=== PATIENT | female | born 1995 | race Caucasian/White ===

== ENCOUNTER → 2024-09-17 13:55 | Outpatient (CLI) | payer OTHER, SELFPAY ==
[2024-09-17 16:54] LABS: Urine N gonorrhoeae NOT DETECTED
[2024-09-17 17:01] LABS: Urine Chlamydia NOT DETECTED
== END ==
PROVIDERS: Visit Provider Student in an Organized Health Care Education/Training Program
DX: Z34.80 Encounter for supervision of other normal pregnancy, unspecified trimester (principal)
CPT/HCPCS: 87491; 87591

== ENCOUNTER 2024-09-25 07:39 | Emergency (ER) | payer OTHER, SELFPAY ==
[2024-09-25 07:57] VITALS: BP 129/76; PULSE 87; RESP 19; TEMP 36.3; O2SAT 98; BMI 29.2
--- NOTE | 2024-09-25 08:47 | ED_ITS ---
HPI - General Adult General Chief complaint: OB/Uterine Contractions Stated complaint: 7 weeks lot of bleeding Time Seen by Provider: 09/25/24 08:47 Source: patient Mode of arrival: Family Vehicle History of Present Illness HPI narrative: 28-year-old 7 weeks by dates with prior ultrasound approximately 2 weeks ago showing her 5 weeks and 5 days. She has been having increasing cramping over the last 24 hours increasing spotting and this morning passed a fairly large clot. She has not feeling dizzy, no palpitations no chest pain. She recognizes that possibility of a miscarriage this point is high. She did not require RhoGAM with her 1st Related Data Home Medications Medication Instructions Recorded Confirmed vitamin-ferrous sulfate tab PO 09/11/24 09/17/24 27 mg iron-folic acid 0.8 mg tablet Allergies Allergy/AdvReac Type Severity Reaction Status Date / Time No Known Drug Allergies Allergy Verified 09/25/24 08:01 Review of Systems Review of Systems Narrative: Pertinent positive and negative findings as per HPI Patient History Medical History Wrist fracture Surgical History History of tooth extraction [place] teeth extracted Family History Father Esophageal cancer GERD (gastroesophageal reflux disease) Obesity Mother Cholecystitis Social History marital status: number of children: 1 household members: spouse and children lives independently: Yes caregiver/support person: Yes housing: house pets and animals: Yes (dogs) education level: college (bachelor's degree) occupational status: employed (works from home) current occupational exposures/hazards: No special maddi needs: No travel history: recent (domestic only) seatbelt use: always helmet use: Yes water heater temp set < 120 deg: Yes working smoke detector in home: Yes fire extinguisher in home: Yes carbon monox detector in home: Yes firearms in home: No do you feel safe at home: Yes Smoking Status: Never smoker second hand exposure: No alcohol intake: former (very occasionally when not ) substance use type: marijuana (not while /) during the past year weight has: other (back to pre- weight) well-balanced diet: about half the time daily servings fruits/ve or more times/day caffeine: Yes (single 12 oz cup coffee in AM) Type(s) of exercise: walking (1.5-2 miles/day) and yoga Smoking Status: Never smoker alcohol intake frequency: 0-2 drinks per day Substance Use Type: does not use Exam Initial Vital Signs Initial Vital Signs: Vital Signs Temperature 97.4 F L 09/25/24 07:57 Pulse Rate 87 09/25/24 07:57 Respiratory Rate 19 09/25/24 07:57 Blood Pressure 129/76 09/25/24 07:57 Pulse Oximetry 98 09/25/24 07:57 Oxygen Delivery Method Room Air 09/25/24 07:57 General: Alert appropriate in no acute distress Respiratory: Able to speak in full sentences, no obvious respiratory distress Abdomen: Minor suprapubic tenderness no flank pain Skin: No obvious rashes, warm and dry Neurologic: Grossly intact no obvious asymmetries or abnormalities Psych: appropriate insight and affect, cooperative Bedside ultrasound is done. She has a full bladder and visualization of the uterus is excellent There is yolk sac with pole. There is some minor cardiac activity somewhere in the 60-80 beat range. There is subchorionic clot appreciated there was also clot appreciated in the lower uterine segment Course Orders Ordered: ED Orders 09/25/24 08:25 Complete Blood Count AUTO DIFF Stat Comprehensive Metabolic Panel Stat HCG Quantitative /Beta subunit Stat Type and Screen Stat Vital Signs Vital signs: Vital Signs - 8 hr 09/25/24 07:57 Temperature 97.4 F L Pulse Rate 87 Respiratory Rate 19 Blood Pressure 129/76 Pulse Oximetry 98 Oxygen Delivery Method Room Air Medical Decision Making [facility] Narrative Medical decision making narrative: 28-year-old woman approximately 7 weeks in the process of miscarrying. With the clots, cramping, clots appreciated inside the uterus and heart rate in the 60-80 range impending spontaneous miscarriage is most likely diagnosis. There does not appear to be any difficulties with ectopic . At this point pain is controlled. Offered Toradol as well as oral narcotics but patient declined. She was prepared to hear this news. We talked about discharge home, at 7 weeks, the chances for successfully passing this at home without any medical or surgical intervention is quite high. Reviewed with her reasons to return to the emergency department. Talked about ibuprofen and Tylenol for pain control. She declined any narcotics to use at home. We will ask her to follow up with her OBGYN in the near future. Discharge Plan Departure Patient Disposition: Home Clinical Impression: Incomplete miscarriage Instructions: DI for Miscarriage Activity Restrictions/Additional Instructions: I am sorry that you are having to experience this Based on the ultrasound with multiple blood clots in your uterus and the heart rate dropping so low, you are in the process of miscarriage. The chances her cholesterol 100% that this will continue. At 7 weeks, you are likely going to be able to pass the clots as well as the products of conception without any additional medical intervention. Using 400 mg of ibuprofen (2 [id number]-hkiljej pills) and 1 Tylenol every 6 hours can be very helpful in controlling pain. Reasons to return to the emergency department include increasing pain, heavy bleeding such that your feeling more than a pad an hour, chest pain shortness for breath. I would recommend that you follow up with your OBGYN, please give them a call this week to see how soon they would like to see you. Prescriptions: No Action vit-ferrous sulfat-FA 27 mg iron- 0.8 mg tablet PO Referrals: Miscellaneous,Doctor, MD [Primary Care Provider] - Stand Alone Forms: Patient Portal/API/Survey, Work Release Note
[2024-09-25 08:55] LABS: Add Manual Diff / Slide Review NO; Basophils Absolute Auto 0 /uL (0-100); Basophils Percent Auto 0.6 % (0-2); Eosinophils Absolute Auto 100 /uL (0-450); Hematocrit 41.2 % (36-46); Lymphocytes Absolute Auto 2000 /uL (1100-4500); Lymphocytes Percent Auto 33.6 % (25-40); Mean Corpuscular HGB Conc 33.9 % (30-36); Mean Corpuscular Hemoglobin 29.1 PG (26-34); Mean Corpuscular Volume 85.6 fL (80-100); Monocytes Absolute Auto 300 /uL (0-900); Monocytes Percent Auto 5.5 % (3-14); Neutrophils Absolute Auto 3600 /uL (1500-7000); Neutrophils Percent Auto 59.3 % (50-75); Platelet Count 185 X10^3/uL (150-400); Red Blood Cell Count 4.82 X10^6/uL (4.0-5.2); Red Cell Distribution Width 13.2 % (11.6-14.8)
[2024-09-25 09:07] LABS: Alanine Aminotransferase 20 IU/L (<35); Albumin 4.7 g/dL (3.5-5.0); Albumin Globulin Ratio 1.5 (1.0-2.8); Alkaline Phosphatase 66 U/L (38-126); Aspartate Aminotransferase 25 IU/L (14-36); BUN Creatinine Ratio 12.3 (6-22); Bilirubin Total 0.9 mg/dL (0.2-1.3); Blood Urea Nitrogen 9 mg/dL (7-17); Calcium 9.4 mg/dL (8.4-10.2); Carbon Dioxide 26 mmol/L (22-32); Chloride 103 mmol/L (98-107); Estimated Glomerular Filt Rate > 60 mL/min (>60); Globulin 3.1 g/dL (1.7-4.1); Glucose 92 mg/dL (70-100); HEMOLYSIS < 15 (0-50); Potassium 4.3 mmol/L (3.4-5.1); Sodium 138 mmol/L (137-145); Total Protein 7.8 g/dL (6.3-8.2)
[2024-09-25 09:21] LABS: Urine Volume 10mL (spun)
[2024-09-25 09:24] LABS: HCG Quantitative /Beta subunit 7758.1 mIU/mL
[2024-09-25 09:25] VITALS: BP 124/72; PULSE 80; RESP 20; TEMP 36.4; O2SAT 100
[2024-09-25 09:26] LABS: Bacteria Urine None Seen; Culture Indicated Urine Specimen Cultured; RBC Urine 1-5/HPF (0-5/HPF); Squamous Epithelial Cell Urine 1-5 /HPF (0-5/HPF); WBC Urine 5-10/HPF (0-5/HPF)
== END 2024-09-25 09:28 | disposition home or self-care (01) ==
PROVIDERS: Emergency Provider Emergency Medicine
DX: O03.4 Incomplete spontaneous abortion without complication (principal)
CPT/HCPCS: 36415; 80053; 81003; 81015; 84702; 85025; 86850; 86900; 86901; 87086; 99283

== ENCOUNTER → 2024-10-29 09:48 | Outpatient (CLI) | payer OTHER, SELFPAY | PROVIDERS: Referring Provider Physician Assistant; Visit Provider Physician Assistant | DX: J02.9 Acute pharyngitis, unspecified (principal) | CPT/HCPCS: 87070; 87077; 87147; 87185 ==

== ENCOUNTER → 2025-08-20 12:49 | Outpatient (CLI) | payer OTHER, SELFPAY ==
[2025-08-20 16:16] LABS: Progesterone, Total 1.02 ng/mL
== END ==
PROVIDERS: Referring Provider Obstetrics & Gynecology; Visit Provider Obstetrics & Gynecology
DX: N92.6 Irregular menstruation, unspecified (principal)
CPT/HCPCS: 36415; 84144

== ENCOUNTER → 2025-09-22 12:23 | Outpatient (CLI) | payer OTHER, SELFPAY ==
[2025-09-22 13:10] LABS: Alanine Aminotransferase 16 IU/L (<35); Albumin 4.8 g/dL (3.5-5.0); Albumin Globulin Ratio 1.7 (1.0-2.8); Alkaline Phosphatase 60 U/L (38-126); Blood Urea Nitrogen 12 mg/dL (7-17); Calcium 9.5 mg/dL (8.4-10.2); Carbon Dioxide 23 mmol/L (22-32); Chloride 103 mmol/L (98-107); Estimated Glomerular Filt Rate > 60 mL/min (>60); Globulin 2.9 g/dL (1.7-4.1); Glucose 80 mg/dL (70-99); HEMOLYSIS < 15 (0-50); Potassium 4.3 mmol/L (3.4-5.1); Sodium 138 mmol/L (137-145); Total Protein 7.7 g/dL (6.3-8.2)
[2025-09-22 13:24] LABS: HCG Quantitative /Beta subunit < 2.39 mIU/mL
[2025-09-22 13:38] LABS: TSH w/ Reflex to FT4 2.57 uIU/mL (0.47-4.68)
[2025-09-22 14:11] LABS: Follicle Stimulating Hormone 5.26 mIU/mL
[2025-09-22 14:27] LABS: Estradiol, Total 33.5 pg/mL
== END ==
PROVIDERS: Referring Provider Obstetrics & Gynecology; Visit Provider Obstetrics & Gynecology
DX: N92.6 Irregular menstruation, unspecified (principal)
CPT/HCPCS: 36415; 80053; 82397; 82670; 83001; 84146; 84443; 84702

== ENCOUNTER → 2025-10-09 09:18 | Outpatient (CLI) | payer OTHER, SELFPAY ==
--- NOTE | 2025-10-09 09:20 | DI.US.S_ITS ---
PROCEDURE: US PELVIC COMPLETE INDICATIONS: EVALUATE ENDOMETRIAL LINING AFTER MENSES TECHNIQUE: Real-time scanning was performed of the pelvic organs, with image documentation. Additional endovaginal scanning was necessary due to incomplete visualization of the adnexal and endometrial structures by transabdominal scanning. COMPARISON: None. FINDINGS: Uterus: Uterus is anteverted and normal in size at 7.5 x 5.4 x 3.4 cm. The myometrium is heterogeneous. The endometrium measures 8.1 mm combined thickness. Ovaries: The right ovary measures 4.0 x 3.4 x 2.1 cm, with a calculated ovarian volume of 15.1 cc. The left ovary measures 4.7 x 3.2 x 2.3 cm, with a calculated ovarian volume of 18.2 cc. The ovaries have a normal sonographic appearance. Greater than 12 follicles can be seen in each ovary. No adnexal masses are seen. Other: No pathologic free abdominal or pelvic fluid. IMPRESSION: Greater than 12 follicular cysts bilaterally which can be associated with polycystic ovarian morphology, recommend clinical correlation. Endometrium is normal in thickness measuring 8 millimeters. We strive to produce accurate, complete, and clear reports of imaging services. To assist us in improving patient care, this report was composed using standard report templates and voice recognition software. Therefore, it may contain abnormal punctuation, insertions and/or omissions. Occasional wrong-word or sound-alike substitutions may occur. Though we review the report and make efforts to correct it, we do recommend that the report be read carefully in proper context to recognize any text inaccuracies. Dictated by: Teto Barbour M.D. on 10/09/2025 at 12:13 Approved by: Teto Barbour M.D. on 10/09/2025 at 12:16
== END ==
PROVIDERS: Referring Provider Obstetrics & Gynecology; Visit Provider Obstetrics & Gynecology
DX: N92.6 Irregular menstruation, unspecified (principal)
CPT/HCPCS: 76830; 76856